=== PATIENT | female | born 1980 | race African-American/Black ===

== ENCOUNTER → 2016-12-06 11:25 | Emergency (ER) | payer OTHER ==
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
== END | disposition home or self-care (01) ==
LOC: CFTX 11:25
DX: S62.645A Nondisplaced fracture of proximal phalanx of left ring finger, initial encounter for closed fracture (principal); I10 Essential (primary) hypertension; F17.210 Nicotine dependence, cigarettes, uncomplicated; Z88.1 Allergy status to other antibiotic agents; Z88.8 Allergy status to other drugs, medicaments and biological substances; W22.8XXA Striking against or struck by other objects, initial encounter; Y92.009 Unspecified place in unspecified non-institutional (private) residence as the place of occurrence of the external cause
CPT/HCPCS: 29515; 73630; 99283